=== PATIENT | male | born 1980 | race Caucasian/White ===

== ENCOUNTER 2017-07-02 06:26 | Emergency (ER) | payer SELFPAY ==
[2017-07-02] MEDS ORDERED: Lidocaine 1% w/Epinephrine 1:100K 30 ML VIAL ONE (06:48)
[2017-07-02] MEDS ORDERED: Adacel (T-DAP) 0.5 ML VIAL ONE (06:48)
[2017-07-02] MEDS ORDERED: Bacitracin Zinc 1 Packet ONE (07:28)
[2017-07-02] MEDS ORDERED: Amoxicillin/Potassium Clav 875 MG TAB ONE (07:50)
== END 2017-07-02 07:55 | disposition home or self-care (01) ==
LOC: BURERS 06:26
DX: S51.811A Laceration without foreign body of right forearm, initial encounter (principal); S61.511A Laceration without foreign body of right wrist, initial encounter; S51.851A Open bite of right forearm, initial encounter; W54.0XXA Bitten by dog, initial encounter
CPT/HCPCS: 12002; 90471; 90715; J2001

== ENCOUNTER 2018-05-26 20:58 | Emergency (ER) | payer SELFPAY | END 2018-05-26 21:15 | disposition home or self-care (01) | LOC: BURERS 20:58 | DX: S90.221A Contusion of right lesser toe(s) with damage to nail, initial encounter (principal); W20.8XXA Other cause of strike by thrown, projected or falling object, initial encounter | CPT/HCPCS: 99281 ==

== ENCOUNTER 2023-01-02 21:01 | Emergency (ER) | payer OTHER ==
[2023-01-02] MEDS ORDERED: Boostrix 0.5 ML (Tdap) VIAL (>/=7 yrs of age) ONE (21:21)
[2023-01-02] MEDS ORDERED: Ciprofloxacin 500 MG TAB ONE (21:57)
== END 2023-01-02 22:00 | disposition home or self-care (01) ==
LOC: BURERS 21:01
DX: S91.332A Puncture wound without foreign body, left foot, initial encounter (principal); S91.331A Puncture wound without foreign body, right foot, initial encounter; Z23 Encounter for immunization; W45.0XXA Nail entering through skin, initial encounter
CPT/HCPCS: 90471; 90715